=== PATIENT | female | born 2000 | race Caucasian/White ===

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

== ENCOUNTER 2019-06-30 09:16 | Emergency (ER) | payer SELFPAY ==
[~2019-06-30] VITALS: Ht 167.6 cm; Wt 68.2 kg
[2019-06-30 09:22] VITALS: TEMP 98.4
[2019-06-30 10:04] LABS: BASO % 0.4 % (0.0-2.0); EOS % 0.8 % (0-4.0); GRAN # 2.9 (1.4-6.5); GRAN % 59.4 % (42.2-75.2); HEMATOCRIT 40.2 % (35.0-45.0); HEMOGLOBIN 13.8 g/dl (12.0-15.0); LYMPH # 1.6 (1.2-3.4); LYMPH % 32.3 % (20.0-51.0); MEAN CELL VOLUME 91 fl (80.0-95.0); MEAN CORPUSCULAR HEMOGLOBIN 31 pg (26.0-32.0); MEAN CORPUSCULAR HGB CONC 34 g/dl (33.0-37.0); MEAN PLATELET VOLUME 9.2 fl (7.4-10.4); MONO # 0.4 (0.1-0.6); MONO % 7.1 % (1.7-9.3); PLATELET COUNT 181 K/mm3 (130-400); REDCELL DISTRIBUTION WIDTH-CV 11.8 % (11.5-14.5)
[2019-06-30 10:16] LABS: ALANINE AMINOTRANSFERASE 14 U/L (4-34); ALBUMIN 4.5 gm/dL (3.5-5.0); ALKALINE PHOSPHATASE 47 U/L (50-136); ANION GAP 7 mmol/L (7-16); AST,SGOT 26 U/L (15-37); BILIRUBIN,TOTAL 0.6 mg/dL (0.0-1.0); BLOOD UREA NITROGEN 13 mg/dL (7-17); CALCIUM 9.5 mg/dL (8.4-10.2); CARBON DIOXIDE 27 mmol/L (22-30); CHLORIDE 105 mmol/L (98-107); CREATININE, serum 0.99 (0.52-1.25); GLUCOSE 84 mg/dL (74-106); LIPASE 98 U/L (23-300); POTASSIUM 3.5 mmol/L (3.4-5.0); SODIUM 138 mmol/L (137-145); TOTAL PROTEIN 7.8 gm/dL (6.4-8.2)
[2019-06-30 10:25] LABS: INR 1.1 (0.8-3.0); PROTHROMBIN TIME 12.4 SECONDS (9.7-12.8)
[2019-06-30 10:27] LABS: TROPONIN-I < 0.012 ng/mL (0.000-0.035)
[2019-06-30 10:33] LABS: D-DIMER < 200.00 ng/mLDDu (200-230)
[2019-06-30 11:33] VITALS: BP 116/72; PULSE 74
== END 2019-06-30 11:29 | disposition home or self-care (01) ==
LOC: COL.ER 09:16
PROVIDERS: Emergency Medicine
DX: R07.89 Other chest pain (principal); F17.290 Nicotine dependence, other tobacco product, uncomplicated
CPT/HCPCS: J1885; J7030

== ENCOUNTER 2020-11-03 06:30 | Emergency (ER) | payer BC ==
[~2020-11-03] VITALS: Ht 170.2 cm; Wt 77.3 kg
[2020-11-03 06:42] VITALS: BP 134/90; PULSE 84; TEMP 97.3
[2020-11-03 07:16] LABS: BASO % 0.5 % (0.0-2.0); EOS % 0.5 % (0-4.0); GRAN # 4.1 (1.4-6.5); GRAN % 52.8 % (42.2-75.2); HEMATOCRIT 43.5 % (35.0-45.0); LYMPH # 3.1 (1.2-3.4); LYMPH % 39.6 % (20.0-51.0); MEAN CELL VOLUME 89 fl (80.0-95.0); MEAN CORPUSCULAR HEMOGLOBIN 31 pg (26.0-32.0); MEAN CORPUSCULAR HGB CONC 35 g/dl (33.0-37.0); MEAN PLATELET VOLUME 9.5 fl (7.4-10.4); MONO # 0.5 (0.1-0.6); MONO % 6.3 % (1.7-9.3); PLATELET COUNT 237 K/mm3 (130-400); REDCELL DISTRIBUTION WIDTH-CV 11.6 % (11.5-14.5)
[2020-11-03 07:17] LABS: ALBUMIN 4.9 gm/dL (3.5-5.0); BILIRUBIN,TOTAL 0.6 mg/dL (0.0-1.0); CALCIUM 10.3 mg/dL (8.4-10.2); CREATININE, serum 0.82 (0.52-1.25); POTASSIUM 3.6 mmol/L (3.4-5.0); TOTAL PROTEIN 8.2 gm/dL (6.4-8.2)
[2020-11-03 08:43] LABS: COLLECTION METHOD CLEAN CATCH
[2020-11-03 08:50] LABS: MUCOUS Present /lpf; PH 7 (5-8); URINE APPEARANCE Clear; URINE BACTERIA None Seen /hpf; URINE BILIRUBIN Negative (NEGATIVE); URINE BLOOD Negative (NEGATIVE); URINE COLOR Yellow; URINE GLUCOSE Negative (NEGATIVE); URINE KETONE Negative (NEGATIVE); URINE LEUKOCYTE ESTERASE Negative (NEGATIVE); URINE NITRATE Negative (NEGATIVE); URINE PROTEIN(semi-quant) Negative (NEGATIVE); URINE RBC 0-2 /hpf
[2020-11-03] MEDS ORDERED: ZOFRAN ODT4 MG PO (08:58)
== END 2020-11-03 09:21 | disposition home or self-care (01) ==
LOC: COL.ER 06:30
PROVIDERS: Emergency Medicine
DX: R10.13 Epigastric pain (principal); Z90.49 Acquired absence of other specified parts of digestive tract; Z32.02 Encounter for pregnancy test, result negative
CPT/HCPCS: J2270; J2405; J3010; J7030; Q9967

== ENCOUNTER 2023-07-03 19:19 | Emergency (ER) | payer MEDICAID, BC ==
[~2023-07-03] VITALS: Ht 167.6 cm; Wt 90.9 kg
[~2023-07-03 19:19] MED LIST: PRENATAL TABLET PO; ZOFRAN ODT4 MG PO; ZOLOFT 50MG50 MG PO
[2023-07-03 19:23] VITALS: TEMP 98.9
[2023-07-03 19:53] LABS: BASO % 0.4 % (0.0-2.0); EOS # 0.1 K/mm3 (0.0-0.7); EOS % 1.4 % (0.0-4.0); GRAN # 7.5 K/mm3 (1.4-6.5); GRAN % 80.2 % (42.2-75.2); LYMPH # 1.1 K/mm3 (1.2-3.4); LYMPH % 11.8 % (20.0-51.0); MEAN CELL VOLUME 95 fl (80.0-100.0); MEAN CORPUSCULAR HGB CONC 33 g/dl (33.0-37.0); MEAN PLATELET VOLUME 9.3 fl (7.4-10.4); MONO # 0.5 K/mm3 (0.1-0.6); MONO % 5.1 % (1.7-9.3); PLATELET COUNT 218 K/mm3 (130-400); RED BLOOD COUNT 2.55 M/mm3 (4.10-5.30); REDCELL DISTRIBUTION WIDTH-CV 12.8 % (11.5-14.5)
[2023-07-03 19:55] LABS: HEMATOCRIT 24.3 % (37.0-47.0); HEMOGLOBIN 8.1 g/dl (12.5-16.0); MEAN CORPUSCULAR HEMOGLOBIN 32 pg (27-31)
[2023-07-03 20:04] LABS: COLLECTION METHOD CLEAN CATCH
[2023-07-03 20:08] LABS: ALBUMIN 2.8 g/dL (3.5-5.0); BILIRUBIN,TOTAL 0.2 mg/dL (0.2-1.2); CALCIUM 9.8 mg/dL (8.4-10.2); CREATININE, serum 0.82 mg/dL (0.57-1.11); POTASSIUM 3.8 mEq/L (3.5-4.5); TOTAL PROTEIN 6.8 g/dl (6.2-8.1)
[2023-07-03 20:09] LABS: PH 7.5 (5.0-8.5); URINE APPEARANCE CLOUDY (CLEAR/HAZY); URINE BLOOD 3+ (NEGATIVE); URINE COLOR YELLOW (YELLOW); URINE GLUCOSE NEGATIVE (NEGATIVE); URINE KETONE NEGATIVE (NEGATIVE); URINE NITRATE NEGATIVE (NEGATIVE); URINE PROTEIN(semi-quant) TRACE (NEGATIVE); URINE UROBILINOGEN 0.2 E.U/dL (0.2-1.0)
[2023-07-03] MEDS ORDERED: NIFEdipine XL 30 MG TAB PO ONE (20:30)
[2023-07-03] MEDS ORDERED: PROCARDIA XL 3030 MG PO (20:57)
[2023-07-03 21:43] VITALS: BP 136/94; PULSE 88
== END 2023-07-03 21:46 | disposition home or self-care (01) ==
LOC: COL.ER 19:19
PROVIDERS: Family Medicine
DX: O16.5 Unspecified maternal hypertension, complicating the puerperium (principal); Z91.040 Latex allergy status

== ENCOUNTER 2023-11-04 14:51 | Emergency (ER) | payer MEDICAID ==
[~2023-11-04] VITALS: Ht 170.2 cm; Wt 90.9 kg
[~2023-11-04 14:51] MED LIST changes: +PROCARDIA XL 3030 MG PO
[2023-11-04] MEDS ORDERED: NS 1,000 ML IV ONE (15:30)
[2023-11-04 15:35] LABS: BASO % 0.2 % (0.0-2.0); GRAN # 4.1 K/mm3 (1.4-6.5); GRAN % 75.9 % (42.2-75.2); HEMATOCRIT 38.3 % (37.0-47.0); HEMOGLOBIN 12.6 g/dl (12.5-16.0); LYMPH # 0.7 K/mm3 (1.2-3.4); LYMPH % 12.3 % (20.0-51.0); MEAN CELL VOLUME 87 fl (80.0-100.0); MEAN CORPUSCULAR HEMOGLOBIN 29 pg (27-31); MEAN CORPUSCULAR HGB CONC 33 g/dl (33.0-37.0); MEAN PLATELET VOLUME 9.2 fl (7.4-10.4); MONO # 0.6 K/mm3 (0.1-0.6); MONO % 11.4 % (1.7-9.3); PLATELET COUNT 183 K/mm3 (130-400); REDCELL DISTRIBUTION WIDTH-CV 12.6 % (11.5-14.5)
[2023-11-04 15:40] LABS: COLLECTION METHOD CLEAN CATCH
[2023-11-04 15:57] LABS: PH 5.5 (5.0-8.5); URINE APPEARANCE CLEAR (CLEAR/HAZY); URINE BLOOD 3+ (NEGATIVE); URINE COLOR YELLOW (YELLOW); URINE GLUCOSE NEGATIVE (NEGATIVE); URINE KETONE NEGATIVE (NEGATIVE); URINE NITRATE NEGATIVE (NEGATIVE); URINE PROTEIN(semi-quant) TRACE (NEGATIVE); URINE UROBILINOGEN 0.2 E.U/dL (0.2-1.0)
[2023-11-04 16:10] LABS: BILIRUBIN,TOTAL 0.3 mg/dL (0.2-1.2); CALCIUM 9.9 mg/dL (8.4-10.2); CREATININE, serum 0.95 mg/dL (0.57-1.11); POTASSIUM 3.6 mEq/L (3.5-4.5); TOTAL PROTEIN 7.5 g/dl (6.2-8.1)
[2023-11-04 16:17] VITALS: TEMP 98.4
[2023-11-04] MEDS ORDERED: cefTRIAXone 1 G in Water For Injection,Sterile 10 ML IV ONE (16:45)
[2023-11-04] MEDS ORDERED: Ketorolac 30 MG/ML VIAL IV ONE (16:45)
[2023-11-04] MEDS ORDERED: CEFTIN500 MG PO (16:56)
[2023-11-04 17:24] VITALS: BP 110/69; PULSE 82
== END 2023-11-04 17:25 | disposition home or self-care (01) ==
LOC: COL.ER 14:51
PROVIDERS: Physician Assistant
DX: N39.0 Urinary tract infection, site not specified (principal); Z91.040 Latex allergy status
CPT/HCPCS: J0696; J1885; J7030